=== PATIENT | male | born 1960 | race Caucasian/White ===

== ENCOUNTER 2020-08-12 14:17 | Outpatient (REF) | payer MEDICAID, SELFPAY ==
--- NOTE | 2020-08-12 | US_ITS ---
EXAMINATION: NONINVASIVE ASSESSMENT OF THE ARTERIES OF BOTH LOWER EXTREMITIES INTERPRETING VASCULAR AND INTERVENTIONAL RADIOLOGIST: Dony Fish MD CLINICAL INFORMATION: Claudication with absent pedal pulses. TECHNIQUE: Bilateral lower extremity duplex ultrasound was performed with velocity measurements and waveform analysis in the common femoral arteries, profunda femoris arteries, proximal mid and distal superficial femoral arteries, popliteal arteries and tibial vessels. This study was performed only at rest. COMPARISON: PVR study 02/06/2012. FINDINGS: Velocities in cm/sec and phasicity as well as the presence of plaque are reported below. RIGHT LEG: Significant plaque is present and there is complete occlusion of the SFA at its origin with reconstitution distally. Triphasic flow noted in the common femoral and proximal profunda femoris with monophasic flow noted throughout the remainder of the lower extremity. Common Femoral: 169 Profunda Femoris: 175 - a stenosis is present Proximal SFA: Occluded Mid SFA: 20 Distal SFA: 67 Popliteal: 32 Posterior tibial: 40 LEFT LEG: A profunda femoris stenosis is noted along with occlusion of the very proximal SFA occlusion in its midportion. Monophasic flow noted throughout. Common Femoral: 229 - exuberant plaque with stenosis. Profunda Femoris: 38 - profunda origin stenosis. Proximal SFA: Occluded Mid SFA: 90 Distal SFA: 41 Popliteal: 26 Posterior tibial: 40 US/US arterial duplex LE BI IMPRESSION: Significant atherosclerotic disease is present. There are bilateral SFA occlusions and profunda femoris stenoses. Compared to the 2011 study, disease has definitely progressed. On the right this time the LIANE was normal with continued disease on the left with new occlusion of the SFA.
== END 2020-08-12 14:18 | disposition home or self-care (01) ==
LOC: HO.US 14:17
PROVIDERS: PCP Internal Medicine; Visit Provider Internal Medicine
DX: I73.9 Peripheral vascular disease, unspecified (principal)
CPT/HCPCS: 93925

== ENCOUNTER 2022-04-19 11:28 | Outpatient (REF) | payer MEDICAID, SELFPAY ==
--- NOTE | ~2022-04-19 | XR_ITS ---
EXAMINATION: XR FOOT, RIGHT XR CALCANEUS, RIGHT CLINICAL INFORMATION: Symptoms at right heel, foreign body versus plantar wart. COMPARISON: None TECHNIQUE: 3 views of the left foot are obtained along with Carter view of the right heel. FINDINGS: There is normal bony mineralization. No acute or healing fracture, dislocation, or destructive process. No periostitis. There is mild bunion at medial first metatarsal. No joint narrowing or erosive change. The subtalar joint appears normal. The retrocalcaneal recess is preserved. There is no calcaneal spurring. There is no radiopaque soft tissue foreign body demonstrated in the heel nor gas tracking in the soft tissues. The Carter view shows some fine linear tram track calcifications posterior to the sustentaculum evan, not visible on the other views, likely vascular or ligamentous. XR/XR calcaneus RT min 2V IMPRESSION: -No visible heel radiopaque soft tissue foreign body or gas tracking in soft tissues. -Small bunion medial first metatarsal. -No calcaneal spurring. No arthropathy. -Fine linear tram track calcifications posterior to the sustentaculum evan, not visible on the other views, likely vascular or ligamentous.
--- NOTE | ~2022-04-19 | XR_ITS ---
EXAMINATION: XR FOOT, RIGHT XR CALCANEUS, RIGHT CLINICAL INFORMATION: Symptoms at right heel, foreign body versus plantar wart. COMPARISON: None TECHNIQUE: 3 views of the left foot are obtained along with Carter view of the right heel. FINDINGS: There is normal bony mineralization. No acute or healing fracture, dislocation, or destructive process. No periostitis. There is mild bunion at medial first metatarsal. No joint narrowing or erosive change. The subtalar joint appears normal. The retrocalcaneal recess is preserved. There is no calcaneal spurring. There is no radiopaque soft tissue foreign body demonstrated in the heel nor gas tracking in the soft tissues. The Carter view shows some fine linear tram track calcifications posterior to the sustentaculum evan, not visible on the other views, likely vascular or ligamentous. XR/XR foot RT min 3V IMPRESSION: -No visible heel radiopaque soft tissue foreign body or gas tracking in soft tissues. -Small bunion medial first metatarsal. -No calcaneal spurring. No arthropathy. -Fine linear tram track calcifications posterior to the sustentaculum evan, not visible on the other views, likely vascular or ligamentous.
== END 2022-04-19 11:29 | disposition home or self-care (01) ==
LOC: HO.HMGCX 11:28
PROVIDERS: PCP Internal Medicine; Visit Provider Internal Medicine
DX: B07.0 Plantar wart (principal)
CPT/HCPCS: 73630; 73650

== ENCOUNTER 2023-01-19 11:27 | Outpatient (REF) | payer MEDICARE, MEDICAID, SELFPAY ==
--- NOTE | ~2023-01-19 | XR_ITS ---
EXAMINATION: XR cervical spine 3V CLINICAL INFORMATION: Pain COMPARISON: Cervical spine radiographs 06/01/2020 TECHNIQUE: 3 views of the cervical spine were obtained. FINDINGS: The cervical spine is visualized to the level of C6-C7 on the lateral view. Vertebral body alignment is maintained. Vertebral body heights are maintained. Moderate degenerative disc disease at C6-C7, manifested by loss of disc space height and facet arthropathy. Lateral masses of C1 are well aligned on C2. Visualized portion of the dens is intact. No prevertebral soft tissue swelling. Calcifications in the soft tissues of the bilateral neck may reflect carotid calcifications. XR/XR cervical spine 3V IMPRESSION: * Moderate spondylosis of the cervical spine, as above detailed.
== END 2023-01-19 11:28 | disposition home or self-care (01) ==
LOC: HO.HMGCX 11:27
PROVIDERS: PCP Internal Medicine; Visit Provider Internal Medicine
DX: M54.2 Cervicalgia (principal)
CPT/HCPCS: 72040

== ENCOUNTER 2023-03-27 07:57 | Outpatient (REF) | payer MEDICARE, MEDICAID, SELFPAY ==
--- NOTE | ~2023-03-27 | XR_ITS ---
EXAMINATION: XR HAND, RIGHT CLINICAL INFORMATION: Pain COMPARISON: None TECHNIQUE: 3 views of the hand FINDINGS: No fracture or dislocation. Joint spaces are maintained. No cortical erosion. Atherosclerotic vascular calcification. XR/XR hand RT min 3V IMPRESSION: No acute osseous abnormality.
== END 2023-03-27 07:58 | disposition home or self-care (01) ==
LOC: HO.HOSX 07:57
PROVIDERS: Visit Provider Orthopaedic Surgery
DX: M79.641 Pain in right hand (principal)
CPT/HCPCS: 73130; 99202

== ENCOUNTER 2023-04-02 07:27 | Outpatient (REF) | payer MEDICARE, MEDICAID, SELFPAY ==
--- NOTE | ~2023-04-02 | XR_ITS ---
EXAMINATION: XR KNEE, LEFT XR KNEE AP STANDING CLINICAL INFORMATION: Pain. COMPARISON: None available. TECHNIQUE: Lateral and axial views of the left knee were obtained. AP bilateral standing view of the knees was obtained. FINDINGS: No fracture or joint effusion. Alignment is anatomic. Joint spaces are maintained. No significant varus or valgus configuration is seen bilaterally. There are diffuse bilateral atherosclerotic calcifications. XR/XR knee LT 2V IMPRESSION: Normal left knee and AP bilateral knee radiographs.
--- NOTE | ~2023-04-02 | XR_ITS ---
EXAMINATION: XR KNEE, LEFT XR KNEE AP STANDING CLINICAL INFORMATION: Pain. COMPARISON: None available. TECHNIQUE: Lateral and axial views of the left knee were obtained. AP bilateral standing view of the knees was obtained. FINDINGS: No fracture or joint effusion. Alignment is anatomic. Joint spaces are maintained. No significant varus or valgus configuration is seen bilaterally. There are diffuse bilateral atherosclerotic calcifications. XR/XR knee standing BI IMPRESSION: Normal left knee and AP bilateral knee radiographs.
== END 2023-04-02 07:28 | disposition home or self-care (01) ==
LOC: HO.HOSX 07:27
PROVIDERS: Visit Provider Physician Assistant
DX: S80.02XA Contusion of left knee, initial encounter (principal); M25.562 Pain in left knee
CPT/HCPCS: 20610; 73560; 73565; 99202; J1040

== ENCOUNTER 2023-08-02 18:45 | Outpatient (REF) | payer MEDICARE, MEDICAID, SELFPAY ==
--- NOTE | ~2023-08-02 | MR_ITS ---
MR LUMBAR SPINE WITHOUT CONTRAST CLINICAL INFORMATION: Low back pain. COMPARISON: Lumbar spine MRI 02/02/2020. TECHNIQUE: MRI of the lumbar spine was obtained using routine sequences without contrast. MR/MR lumbar spine wo con FINDINGS/IMPRESSION: The patient could not tolerate this study. A single sagittal T2-weighted series of the lumbar spine is obtained. No axial imaging is obtained. A repeat study, possibly with sedation is recommended as clinically indicated. On the single obtained sagittal T2-weighted series, at L1-L2, a left lateral disc protrusion resulting in left-sided foraminal encroachment and probable mass effect on the extraforaminal left L1 nerve root is likely unchanged. At L2-L3, there is a new inferiorly migrating left paracentral disc extrusion likely containing vacuum phenomenon resulting in compression of the traversing left L3 nerve root within the left L3 lateral recess. At L4-L5, a shallow disc protrusion is partially decreased in size resulting in improved moderate central canal stenosis and disc osteophyte and facet arthropathy result in moderate right-sided foraminal stenosis. At L5-S1, a new right paracentral disc protrusion compresses the traversing right S1 nerve root within the right subarticular zone.
== END 2023-08-02 18:46 | disposition home or self-care (01) ==
LOC: HO.MRI 18:45
PROVIDERS: PCP Internal Medicine; Visit Provider Internal Medicine
DX: M54.50 Low back pain, unspecified (principal)
CPT/HCPCS: 72148

== ENCOUNTER 2024-10-30 09:07 | Outpatient (REF) | payer MEDICARE, SELFPAY ==
--- NOTE | ~2024-10-30 | XR_ITS ---
EXAMINATION: XR WRIST 3 OR MORE VIEWS LEFT, XR FOREARM 2 VIEWS LEFT HISTORY: LEFT WRIST PAIN COMPARISON: There are no prior studies available for comparison. FINDINGS: Three views of the left wrist and AP and lateral views of the left forearm are submitted. Osseous mineralization is normal. There is no fracture or dislocation. The joint spaces are preserved. There are vascular calcifications. XR/XR wrist LT min 3V IMPRESSION: Unremarkable examination of the left wrist and forearm. Electronically signed by: Luis Davis MD 10/30/2024 01:24 PM BOB CACERES
--- NOTE | ~2024-10-30 | XR_ITS ---
EXAMINATION: XR WRIST 3 OR MORE VIEWS LEFT, XR FOREARM 2 VIEWS LEFT HISTORY: LEFT WRIST PAIN COMPARISON: There are no prior studies available for comparison. FINDINGS: Three views of the left wrist and AP and lateral views of the left forearm are submitted. Osseous mineralization is normal. There is no fracture or dislocation. The joint spaces are preserved. There are vascular calcifications. XR/XR forearm LT 2V IMPRESSION: Unremarkable examination of the left wrist and forearm. Electronically signed by: Luis Davis MD 10/30/2024 01:24 PM BOB CACERES
== END 2024-10-30 09:08 | disposition home or self-care (01) ==
LOC: HO.HMGCX 09:07
PROVIDERS: PCP Internal Medicine; Visit Provider Internal Medicine
DX: M79.632 Pain in left forearm (principal)
CPT/HCPCS: 73090; 73110

== ENCOUNTER → 2024-10-30 09:18 | Outpatient (BNV) | payer MEDICARE, SELFPAY | PROVIDERS: PCP Internal Medicine; Visit Provider Radiology Diagnostic Radiology | DX: M25.532 Pain in left wrist (principal) | CPT/HCPCS: 73090; 73110 ==

== ENCOUNTER 2025-04-28 14:04 | Outpatient (AMB) | payer MEDICARE, SELFPAY ==
--- NOTE | 2025-04-28 14:08 | MHC.PC.OV ---
Vital Signs 04/28/25 14:10 Height 5 ft 11.65 in Weight 225 lb BMI 30.8 BP 132/90 H Respiration 16 Pulse 85 Pulse Source Pulse Oximeter Temp 98.3 F Temp Source Temporal Artery Scan Pulse Oximetry (%) 96 Oxygen Delivery Method Room Air Intake Visit Reasons: establish care; pain management, back injury Photographer Apprentice Required: No Accompanied by: Self / Same As Patient Allergies No Known Allergies Allergy (Verified 04/28/25 14:08) Tobacco use date assessed: 04/28/25 Dental Screening Dental Screen Date: 04/28/25 Did you have a dental visit in the last 12 months?: Yes Did you have a dental problem in the last 6 months where you did not have access to dental care?: No Was dental information given to patient?: Patient has dentist (patient has dentures) [facility] Medical History (Updated 04/28/25 @ 14:37 by Varinder Jaime MD) Chronic pain syndrome History of degenerative disc disease High cholesterol Family History (Updated 04/28/25 @ 14:20 by CRUZ Farfan) Father Cirrhosis of liver Alcohol abuse Mother Dementia Social History (Updated 04/28/25 @ 14:19 by CRUZ Farfan) Housing: House Alcohol intake: current Alcohol intake frequency: does not drink Patient Tobacco Use Status: Former Tobacco user service: No Current occupational status: disabled Cognitive needs: Yes (cane occasionally) Hearing needs: No Vision needs: Yes (rx glasses) Questionnaire PHQ-9 Over the last 2 weeks, how often have you been bothered by any of the following problems? 1. Little interest or pleasure in doing things: not at all 2. Feeling down, depressed, or hopeless: not at all 3. Trouble falling or staying asleep, or sleeping too much: not at all 4. Feeling tired or having little energy: not at all 5. Poor appetite or overeating: not at all 6. Feeling bad about yourself - or that you are a failure or have let yourself or your family down: not at all 7. Trouble concentrating on things, such as reading the newspaper or watching television: not at all 8. Moving or speaking so slowly that other people could have noticed. Or the opposite - being so fidgety or restless that you have been moving around a lot more than usual: not at all 9. Thoughts that you would be better off or of hurting yourself in some way: not at all Total score: 0 Source: Developed by Drs. Luis Ramos, Melani Goodrich, Garth Subramanian and colleagues, with an educational luis daniel from [employer]. Thrive Questionnaire Date Thrive assessed: 04/28/25 I am a: Patient What is your living situation today?: I have a steady place to live Within the past 12 months, did the food you bought not last and you didn't have the money to get more?: Never true Within the past 12 months, did you worry whether your food would run out before you got money to buy more?: Never true Do you have trouble paying for medicines?: No Do you have trouble getting transportation to medical appointments?: No Do you have trouble paying your heating and electricity bill?: No Do you have trouble taking care of your child, family member or friend?: No Do you have trouble with day-to-day activities such as bathing, preparing meals, shopping, managing finances, etc.?: No Are you currently unemployed and looking for a job?: No Are you interested in more education?: No Please select the resources that you would like help with: None THRIVE Score: 0 AUDIT C Alcohol Use Questionnaire (AUDIT-C) 1. How often do you have a drink containing alcohol?: Never 3. How often do you have six or more drinks on one occasion?: Never Total Score: 0 DRE-7 AMB Questionnaire DRE-7 Date DRE - 7 assessed: 04/28/25 Feeling nervous, anxious, or on edge: 0 = Not at all Not being able to stop or control worryin = Not at all Worrying too much about different things: 0 = Not at all Trouble relaxin = Not at all Being so restless that it is hard to sit still: 0 = Not at all Becoming easily annoyed or irritable: 0 = Not at all Feeling afraid as if something awful might happen: 0 = Not at all Total DRE-7 score (0-4 normal; 5-9 mild; 10-14 moderate; 15-21 severe): 0 Source: Developed by Melani Klein Kurt Kroenke and colleagues, with an educational luis daniel from [employer]. Physical exam (Primary Care) Vital Signs: Last Vital Signs Temp 98.3 F 04/28/25 14:10 Pulse 85 04/28/25 14:10 Resp 16 04/28/25 14:10 BP 132/90 H 04/28/25 14:10 Pulse Ox 96 04/28/25 14:10 Oxygen Delivery Method Room Air 04/28/25 14:10 BMI result Body Mass Index 30.8 Tobacco/Smoking Status: Tobacco use Status Tobacco use date assessed 04/28/25 04/28/25 14:20 Patient Tobacco Use Status Former Tobacco user 04/28/25 14:20 PHQ-9: PHQ-9 Score PHQ-9: Total score 0 04/28/25 14:20 Thrive Assessment: Date of Thrive Assessment Date Thrive assessed 04/28/25 04/28/25 14:20 Coding Level of Care Code New Pt Level 4 (22767) Complex EM visit Add On G2211 Diagnoses Chronic pain syndrome G89.4 Assessment & Plan Assessment & Plan (1) Chronic pain syndrome: Code(s): G89.4 - Chronic pain syndrome Category: Medical Plan: Pt is disabled due to back pain for many years. Has agreed to reduce oxycodone to 15 mg a day and will try to taper him to 10 mg a day in a month or so. Continue muscle relaxants and other meds Plan History of Present Illness - The patient is a 64-year-old male presenting with management of chronic lower back pain and opioid use. - Chronic lower back pain began in 2019 after a back injury, with no surgical intervention due to the COVID-19 pandemic. - The patient has been on oxycodone and baclofen since the injury, with adjustments in medication due to side effects. - He has received cortisone injections, the last being about one and a half to two years ago, which have provided some relief. - The patient manages his condition with exercises such as stretches and sit-ups and is on disability due to his back condition. - He has a history of smoking cessation four years ago and denies any current substance use or alcohol consumption. 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 - He quit smoking four years ago and denies any substance use or alcohol consumption. Review of Systems - Musculoskeletal: Reports chronic lower back pain, occasional giving out of the back causing him to drop to a knee. - General: Denies smoking, alcohol, or substance use. Physical Exam General: Cooperative and healthy appearing Nutritional Appearance: Well nourished Orientation/consciousness: Patient oriented x3 Limitations: No limitations Head: Normal to inspection General: Appearance normal, both eyes and all related structures Neck: Normal visual inspection Chest: Normal palpation of entire chest wall Respiratory: N ormal respiratory effort Neurology: Patient oriented x3, no signs of substance use or smoking. Results Plan 1. Chronic Lower Back Pain - Plan to reduce oxycodone dosage from 20 mg to 15 mg per day, with a long-term goal of further reduction to twice daily dosing. - Referral to pain management for further evaluation and optimization of pain management strategies. - Continue current non-pharmacological interventions such as stretching and sit-ups. Discussion Notes I discussed with the patient the importance of reducing the oxycodone dosage to prevent potential addiction and to manage pain more effectively. We agreed on a plan to decrease the dosage to 15 mg per day, with a long-term goal of reducing it further to twice daily dosing. I recommended a referral to pain management to explore additional options for managing his chronic lower back pain. We also discussed the continuation of non-pharmacological interventions such as stretching and sit-ups. Follow-up was arranged to monitor progress and adjust the plan as necessary. Patient Instructions - Reduce oxycodone dosage to 15 mg per day, taking 5 mg three times a day. - Continue stretching and sit-ups to help manage back pain. - Attend the scheduled pain management appointment for further evaluation. - Follow up in 30 days to assess progress and adjust the treatment plan as needed. Medications: New oxycodone 5 mg PO TID PRN 90 tabs 0RF pain
[2025-04-28 14:10] VITALS: BP 132/90; PULSE 85; RESP 16; TEMP 36.8; O2SAT 96; BMI 30.8
== END 2025-04-28 14:36 | disposition home or self-care (01) ==
LOC: HO.HMCSH 14:04
PROVIDERS: PCP Internal Medicine; Visit Provider Internal Medicine
DX: G89.4 Chronic pain syndrome (principal)

== ENCOUNTER → 2025-04-28 14:04 | Outpatient (BNVA) | payer MEDICARE, SELFPAY | PROVIDERS: PCP Internal Medicine; Visit Provider Internal Medicine | DX: G89.4 Chronic pain syndrome (principal) | CPT/HCPCS: 99202 ==

== ENCOUNTER 2025-05-19 14:38 | Outpatient (AMB) | payer MEDICARE, SELFPAY ==
--- NOTE | 2025-05-19 14:46 | MHC.OFFVIS ---
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 The patient reports that the pain is localized to the lower back but radiates to the left leg, causing tingling and numbness and weakness with frequent falls. The pain is exacerbated by bending, standing for prolonged periods, and certain movements, and is described as constant with episodes of spasms. Previous interventions included medical injections at [facility] which provided temporary relief, and the patient has been advised against surgery due to the condition of the discs. The patient has a history of smoking cessation in 2020 and does not consume alcohol due to medication. He experiences panic attacks during MRIs and has been on oxycodone, which is being tapered by the new PCP provider. The patient also reports a recent tick bite 3 weeks, which has not been fully resolved, and he has not seen evaluation for this. He reports not feeling well for past few weeks, reports generalized weakness, fatigue and malaise without fever or chills. He reports history of multiple tick bites of smaller size but most recent was large tick and he is not sure if his completely pulled it out. Patient reports tenderness at the bite site. - Onset: Began in 2019 after heavy equipment incident - Quality: Constant pain with episodes of spasms, throbbing, sharp, burning, tingling, heavy, tightness, and radiating pain - Location: Localized to lower back, radiates to left leg - Radiation: Left leg, causing tingling and numbness - Exacerbating factors: Bending, standing for prolonged periods, certain movements - Relieving factors: Lying down provides some relief - Affect: Reports panic attacks during MRIs - Analgesia: Currently on oxycodone, being tapered from 4 to 3 doses - Adverse Effects: None reported - Activities of Daily Living: Pain affects ability to stand for long periods and requires use of a cane or walker at times; reports frequent falls due to back pain - Aberrant Drug Related Behaviors: None reported Oswestry Low Back Pain Disability Score=46 [facility] Medical History (Updated 05/19/25 @ 15:32 by EMILY Milian) Chronic pain syndrome History of degenerative disc disease High cholesterol Family History (Updated 04/28/25 @ 14:20 by CRUZ Farfan) Father Cirrhosis of liver Alcohol abuse Mother Dementia Social History (Updated 04/28/25 @ 14:19 by CRUZ Farfan) Housing: House Alcohol intake: current Alcohol intake frequency: does not drink Patient Tobacco Use Status: Former Tobacco user service: No Current occupational status: disabled Cognitive needs: Yes (cane occasionally) Hearing needs: No Vision needs: Yes (rx glasses) Review of Systems Const Details: - Musculoskeletal: Reports chronic low back pain, radiating to left leg, with spasms and tingling - Neurological: Reports tingling and numbness in left leg - Integumentary: Reports recent tick bite 3 weeks ago, no fever reported; reports fatigue, general weakness, soreness in the mid lower back at bite site - Psychiatric: Reports panic attacks during MRIs All systems reviewed & are unremarkable except as noted in HPI and below Reports as per HPI, Reports body aches, Reports chills, Reports difficulty sleeping, Reports fatigue, Denies fever(s), Reports frequent falls, Reports headache(s), Reports lethargy, Reports malaise, Denies night sweats, Reports weakness and Denies weight loss ENT Reports headache(s) Neuro Reports frequent falls, Reports headache(s) and Reports weakness Endo Reports fatigue Physical Exam Vital Signs: Last Vital Signs Pulse 77 05/19/25 14:51 BP 140/84 H 05/19/25 14:51 Pulse Ox 98 05/19/25 14:51 Oxygen Delivery Method Room Air 05/19/25 14:51 BMI result Body Mass Index 29.9 General: Appears afebrile. Moderate distress due to pain. Alert and oriented. Mood and affect appropriate. Follows and participates in conversation appropriately. Respiratory effort is unlabored. No cough. Able to transition from sit to stand unassisted. Ambulates with bilaterally normal heel strike and toe off. Reports left leg weakness and increased pain with walking. General: Yes no CVA tenderness Back/Spine/Pelvis Other: Limited lumbar ROM due to pain. Lumbar flexion and extension reproduce moderate to severe pain, worse with flexion forward. Demonstrates 5/5 right and 4/5 left strength of quadriceps bilaterally as well as flexion/dorsiflexion of bilateral feet against resistance. 2+ pedal pulses bilaterally. Straight leg rise with dorsiflexion positive on the left, equivocal on the right. +1 patellar and achilles reflexes bilaterally. Facet loading test positive bilaterally. Hannah sign, Kun?s, Pelvic compression and Stinchfield tests are positive bilaterally, left>right. No groin pain with I/E hip rotations. Significant TTP to mid to lower lumbar paraspinal and midline tenderness lower midline spine. Symptomatic and tender area midline lower back s/p tick bite 3 weeks ago with erythema and redness at the bite site. Valsalva maneuver is positive. Back: no CVA tenderness Cervical Spine: cervical ROM normal, cervical muscular tenderness, pain with cervical ROM, cervical spasm and No Cervical spine tenderness Thoracic/Lumbar Spine: thoracic and lumbar spine normal to inspection, Thoracic/lumbar spine scar(s), Lasegue's sign positive on the left and localized, pain with thoraco-lumbar ROM, paraspinal muscle tenderness, thoraco-lumbar ROM limited, No thoracic spinal tenderness and lumbar spinal tenderness at L3, at L4 and at L5 Pelvis: buttock tenderness on the left Sacroiliac joints: bilaterally tender to palpation Skin Other: Results Reviewed Results Reviewed: MR LUMBAR SPINE WITHOUT CONTRAST 08/02/23 CLINICAL INFORMATION: Low back pain. COMPARISON: Lumbar spine MRI 02/02/2020. TECHNIQUE: MRI of the lumbar spine was obtained using routine sequences without contrast. FINDINGS/IMPRESSION: The patient could not tolerate this study. A single sagittal T2-weighted series of the lumbar spine is obtained. No axial imaging is obtained. A repeat study, possibly with sedation is recommended as clinically indicated. On the single obtained sagittal T2-weighted series, at L1-L2, a left lateral disc protrusion resulting in left-sided foraminal encroachment and probable mass effect on the extraforaminal left L1 nerve root is likely unchanged. At L2-L3, there is a new inferiorly migrating left paracentral disc extrusion likely containing vacuum phenomenon resulting in compression of the traversing left L3 nerve root within the left L3 lateral recess. At L4-L5, a shallow disc protrusion is partially decreased in size resulting in improved moderate central canal stenosis and disc osteophyte and facet arthropathy result in moderate right-sided foraminal stenosis. At L5-S1, a new right paracentral disc protrusion compresses the traversing right S1 nerve root within the right subarticular zone. XR cervical spine 3V 01/19/23 CLINICAL INFORMATION: Pain COMPARISON: Cervical spine radiographs 06/01/2020 FINDINGS: The cervical spine is visualized to the level of C6-C7 on the lateral view. Vertebral body alignment is maintained. Vertebral body heights are maintained. Moderate degenerative disc disease at C6-C7, manifested by loss of disc space height and facet arthropathy. Lateral masses of C1 are well aligned on C2. Visualized portion of the dens is intact. No prevertebral soft tissue swelling. Calcifications in the soft tissues of the bilateral neck may reflect carotid calcifications. IMPRESSION: * Moderate spondylosis of the cervical spine, as above detailed. Assessment & Plan Assessment & Plan (1) Lumbar radiculopathy: Code(s): M54.16 - Radiculopathy, lumbar region Category: Medical (2) Lumbar degenerative disc disease: Code(s): M51.369 - Other intervertebral disc degeneration, lumbar region without mention of lumbar back pain or lower extremity pain Category: Medical (3) Lumbosacral spondylosis: Code(s): M47.817 - Spondylosis without myelopathy or radiculopathy, lumbosacral region Category: Medical (4) Recurrent falls: Code(s): R29.6 - Repeated falls Category: Medical (5) Lumbar radiculopathy: Code(s): M54.16 - Radiculopathy, lumbar region Category: Medical (6) Tick bite of back: Code(s): S30.860A - Insect bite (nonvenomous) of lower back and pelvis, initial encounter; W57.XXXA - Bitten or stung by nonvenomous insect and other nonvenomous arthropods, initial encounter Category: Medical Plan - Repeat lumbar MRI to assess current status of lumbar disc herniation, stenosis and evaluate for potential interventional pain management vs neurosurgical intervention if necessary - Consideration of interventional pain management options such as diagnostic vs therapeutic injections, Sprint PNS trial, RFA, spinal cord stimulator or pain pump if conservative measures are insufficient. - Patient encouraged to follow up with PCP for recent tick bite, symptomatic currently. Labs and one dose of doxycycline ordered. - Continue oxycodone under PCP supervision to manage chronic pain. - Patient is aware to call if pain worsens or if he develops any red flag symptoms to seek emergency care. All questions and concerns have been answered and patient agreed with the plan. Follow up for MRI results and sooner as needed. Patient was informed and verbally consented to the use of an ambient scribe for clinic note documentation during this visit. Orders: Orders MR lumbar spine wo con Today M47.817 - Spondylosis without myelopathy or radiculopathy, lumbosacral region, M51.369 - Other intervertebral disc degeneration, lumbar region without mention of lumbar back pain or lower extremity pain, M54.16 - Radiculopathy, lumbar region, R29.6 - Repeated falls Lyme IgG/IgM w/reflex to WB Today S30.860A - Insect bite (nonvenomous) of lower back and pelvis, initial encounter, W57.XXXA - Bitten or stung by nonvenomous insect and other nonvenomous arthropods, initial encounter Complete Blood Count Auto Diff Today S30.860A - Insect bite (nonvenomous) of lower back and pelvis, initial encounter, W57.XXXA - Bitten or stung by nonvenomous insect and other nonvenomous arthropods, initial encounter Lipid Panel Today S30.860A - Insect bite (nonvenomous) of lower back and pelvis, initial encounter, W57.XXXA - Bitten or stung by nonvenomous insect and other nonvenomous arthropods, initial encounter Creatinine Today S30.860A - Insect bite (nonvenomous) of lower back and pelvis, initial encounter, W57.XXXA - Bitten or stung by nonvenomous insect and other nonvenomous arthropods, initial encounter Medications: New lidocaine 5% 1 patch topical DAILY 30 ea 1RF pain 30 days M47.817 - Spondylosis without myelopathy or radiculopathy, lumbosacral region, M51.369 - Other intervertebral disc degeneration, lumbar region without mention of lumbar back pain or lower extremity pain, M54.16 - Radiculopathy, lumbar region doxycycline hyclate 200 mg (2 x 100 mg) PO DAILY 2 caps 0RF 1 day S30.860A - Insect bite (nonvenomous) of lower back and pelvis, initial encounter, W57.XXXA - Bitten or stung by nonvenomous insect and other nonvenomous arthropods, initial encounter Coding Level of Care Code New Pt Level 4 (10644) Diagnoses Lumbar radiculopathy M54.16 Lumbar degenerative disc disease M51.369 Lumbosacral spondylosis M47.817 Recurrent falls R29.6 Tick bite of back S30.860A; W57.XXXA
[2025-05-19 14:51] VITALS: BP 140/84; PULSE 77; O2SAT 98; BMI 29.9
== END 2025-05-19 15:53 | disposition home or self-care (01) ==
PROVIDERS: PCP Internal Medicine; Visit Provider Nurse Practitioner Family
DX: M54.16 Radiculopathy, lumbar region (principal); M51.369 Other intervertebral disc degeneration, lumbar region without mention of lumbar back pain or lower extremity pain; M47.817 Spondylosis without myelopathy or radiculopathy, lumbosacral region; R29.6 Repeated falls; S30.860A Insect bite (nonvenomous) of lower back and pelvis, initial encounter; W57.XXXA Bitten or stung by nonvenomous insect and other nonvenomous arthropods, initial encounter
CPT/HCPCS: 99204

== ENCOUNTER 2025-05-19 14:38 | Outpatient (REF) | payer MEDICARE, SELFPAY ==
[2025-05-19 16:04] LABS: MANUAL DIFF FLAG NO
[2025-05-19 16:44] LABS: Hematocrit 44.6 % (42.0-52.0); Hemoglobin 15.1 g/dl (14.0-18.0); Imm Gran Abs Auto 0.04 X10*3/uL (0.00-0.03); Imm Gran Pct Auto 0.4 % (0.0-0.4); Lymphocytes Absolute Auto 3.6 X10*3/uL (1.2-4.9); Mean Corpuscular HGB Conc 33.9 g/dl (31.0-36.0); Mean Corpuscular Hemoglobin 29.5 pg (27.0-33.0); Mean Corpuscular Volume 87.3 fL (80.0-98.0); NRBC Abs Auto 0.000 X10*3/uL (0.0-0.012); NRBC Pct Auto 0.0 /100WBC (0.0-0.2); Platelet Count 149 X10*3/uL (160-400); Red Blood Count 5.11 X10*6/uL (4.60-5.80); White Blood Count 9.8 X10*3/uL (4.8-10.8)
[2025-05-19 17:11] LABS: Cholesterol 194 mg/dL (<200); Estimated Glomerular Filt Rate > 60; HDL Cholesterol 45 mg/dL (>40); Triglycerides 141 mg/dL (<150)
[2025-05-21 08:24] LABS: Lyme Abs Screen <0.90 index
== END 2025-05-19 14:39 | disposition home or self-care (01) ==
LOC: HO.LAB 14:38
PROVIDERS: PCP Internal Medicine; Visit Provider Nurse Practitioner Family
DX: Z01.84 Encounter for antibody response examination (principal); M54.16 Radiculopathy, lumbar region; M51.369 Other intervertebral disc degeneration, lumbar region without mention of lumbar back pain or lower extremity pain; M47.817 Spondylosis without myelopathy or radiculopathy, lumbosacral region; S30.860A Insect bite (nonvenomous) of lower back and pelvis, initial encounter; M54.50 Low back pain, unspecified; G89.4 Chronic pain syndrome; R29.6 Repeated falls; Z13.6 Encounter for screening for cardiovascular disorders; Z79.899 Other long term (current) drug therapy; W57.XXXA Bitten or stung by nonvenomous insect and other nonvenomous arthropods, initial encounter
CPT/HCPCS: 36415; 80061; 82565; 85025; 86617; 86618; 99202

== ENCOUNTER 2025-05-27 13:17 | Outpatient (AMB) | payer MEDICARE, SELFPAY ==
--- NOTE | 2025-05-27 13:22 | A.OFFPC_ITS ---
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 Accompanied by: Self / Same As Patient Allergies No Known Allergies Allergy (Verified 05/28/25 13:11) Medication List - Last Reconciled 05/28/25 by Maryana Matos PA-C albuterol sulfate 90 mcg/actuation 2 puffs inhalation Q4H PRN baclofen 20 mg PO QID ibuprofen 800 mg PO TID oxycodone 5 mg PO TID PRN Tobacco use date assessed: 04/28/25 Dental Screening Dental Screen Date: 04/28/25 Did you have a dental visit in the last 12 months?: Yes Did you have a dental problem in the last 6 months where you did not have access to dental care?: No Was dental information given to patient?: Patient has dentist (patient has dentures) HPI 1 month follow up HPI Details Patient with a past medical history of chronic pain syndrome due to lower back presenting for refill of his narcotics. His chronic pain began in 2019 after a back injury with no surgical intervention due to COVID-19 pandemic. The patient has been on oxycodone and baclofen since the injury, with adjustments in medications due to side effects. He has received cortisone injections the last being about 1-1/2-2 years ago which have provided some relief. The patient manages his condition with exercise such as stretches instead of and is on disability due to back condition. He has a history of smoking cessation of 4 years ago and currently denies any current substance use or alcohol consumption. From Dr. Jaime's last no on 04/28/2025 it appears he had a discussion with the patient at the last visit that he will be decreasing him to 2 times a day of 5 mg oxycodone. Therefore at this visit we will be decreasing the patient to oxycodone 5 mg b.i.d.. He is agreeable to pain contract. He is agreeable to random drug screens. He is agreeable to random pill counts. He is agreeable to every 30 day visits. Patient denies any acute complaints. [facility] Medical History Chronic pain syndrome History of degenerative disc disease High cholesterol Family History Father Cirrhosis of liver Alcohol abuse Mother Dementia Social History Housing: House Alcohol intake: current Alcohol intake frequency: does not drink Patient Tobacco Use Status: Former Tobacco user service: No Current occupational status: disabled Cognitive needs: Yes (cane occasionally) Hearing needs: No Vision needs: Yes (rx glasses) Questionnaire PHQ-9 Over the last 2 weeks, how often have you been bothered by any of the following problems? 1. Little interest or pleasure in doing things: not at all 2. Feeling down, depressed, or hopeless: not at all 3. Trouble falling or staying asleep, or sleeping too much: not at all 4. Feeling tired or having little energy: not at all 5. Poor appetite or overeating: not at all 6. Feeling bad about yourself - or that you are a failure or have let yourself or your family down: not at all 7. Trouble concentrating on things, such as reading the newspaper or watching television: not at all 8. Moving or speaking so slowly that other people could have noticed. Or the op posite - being so fidgety or restless that you have been moving around a lot more than usual: not at all 9. Thoughts that you would be better off or of hurting yourself in some way: not at all Total score: 0 Depression Screening Interpretation: Negative Depression Screening Done: Yes 06627 - PHQ-9 Billing: Yes Source: Developed by Drs. Luis Ramos, Melani Goodrich, Garth Subramanian and colleagues, with an educational luis daniel from [employer]. Thrive Questionnaire Date Thrive assessed: 04/28/25 I am a: Patient What is your living situation today?: I have a steady place to live Within the past 12 months, did the food you bought not last and you didn't have the money to get more?: Never true Within the past 12 months, did you worry whether your food would run out before you got money to buy more?: Never true Do you have trouble paying for medicines?: No Do you have trouble getting transportation to medical appointments?: No Do you have trouble paying your heating and electricity bill?: No Do you have trouble taking care of your child, family member or friend?: No Do you have trouble with day-to-day activities such as bathing, preparing meals, shopping, managing finances, etc.?: No Are you currently unemployed and looking for a job?: No Are you interested in more education?: No Please select the resources that you would like help with: None THRIVE Score: 0 AUDIT C Alcohol Use Questionnaire (AUDIT-C) 1. How often do you have a drink containing alcohol?: Never 3. How often do you have six or more drinks on one occasion?: Never Total Score: 0 Score Reviewed/Action Taken: No DRE-7 AMB Questionnaire DRE-7 Date DRE - 7 assessed: 04/28/25 Feeling nervous, anxious, or on edge: 0 = Not at all Not being able to stop or control worryin = Not at all Worrying too much about different things: 0 = Not at all Trouble relaxin = Not at all Being so restless that it is hard to sit still: 0 = Not at all Becoming easily annoyed or irritable: 0 = Not at all Feeling afraid as if something awful might happen: 0 = Not at all Total DRE-7 score (0-4 normal; 5-9 mild; 10-14 moderate; 15-21 severe): 0 Source: Developed by Drs. Luis Ramos, Melani Goodrich, Garth Subramanian and colleagues, with an educational luis daniel from [employer]. DRE-7 Assessment Billing DRE-7 Assessment Tool: DRE-7 Assessment 15100 Review of Systems Const All systems reviewed & are unremarkable except as noted in HPI and below Physical exam (Primary Care) Vital Signs: Last Vital Signs Temp 98.1 F 05/27/25 13:23 Pulse 97 05/27/25 13:23 Resp 16 05/27/25 13:23 BP 132/80 05/27/25 13:23 Pulse Ox 97 05/27/25 13:23 Oxygen Delivery Method Room Air 05/27/25 13:23 Care Plan Goal for BP management: <140/90 at Goal BMI result Body Mass Index 30.4 BMI Assessment/Plan discussion: High BMI High, discussed plan: lifestyle, weight reduction, dietary, physical activity and alcohol moderation Tobacco/Smoking Status: Tobacco use Status Tobacco use date assessed 04/28/25 05/27/25 13:36 Patient Tobacco Use Status Former Tobacco user 05/27/25 13:36 PHQ-9: PHQ-9 Score PHQ-9: Total score 0 05/28/25 13:21 Depression Screening Interpretation: Negative Thrive Assessment: Date of Thrive Assessment Date Thrive assessed 04/28/25 05/27/25 13:36 Const Other: Appearance: Alert. Oriented X3. No acute distress. Head: Normal external exam. Normocephalic. Atraumatic. Eyes: Pupils are equal, round, and reactive to light. Extraocular movements inta ct. Conjunctiva and sclera normal. Eyelids normal. Throat: Pharynx normal. Uvula midline. Moist mucous membranes. Neck: Normal inspection. Neck supple. Full range of motion. Cardiovascular: Normal heart rate and rhythm. Respiratory: No respiratory distress. Painless inspiration. Back: Full range of motion noted. Skin: Skin warm and dry. Normal skin color. Normal skin turgor. No rashes/lesions/lacerations noted. Extremities: Extremities exhibit normal range of motion Coding Level of Care Code Est Pt Level 4 (45640) Complex EM visit Add On G2211 Diagnoses Chronic pain syndrome G89.4 Lumbar radiculopathy M54.16 Lumbar degenerative disc disease M51.369 Lumbosacral spondylosis M47.817 Additional Codes DRE-7 Assessment Billing - DRE-7 Assessment Tool: DRE-7 Assessment 71805 ([id number]) PHQ-9 - 77987 - PHQ-9 Billing: Yes ([id number]) Assessment & Plan Assessment & Plan (1) Chronic pain syndrome: Code(s): G89.4 - Chronic pain syndrome Category: Medical Plan: 1. Chronic pain syndrome. - Patient has history of chronic lower back pain is currently on oxycodone was decreased from 20 mg to 15 mg and will be decreased to 10 mg today. - He will be taking 5 mg oxycodone b.i.d.. - He is agreeable to pain contract signed it after he reviewed it. - He is agreeable to random drug screening test and he will be having 1 today. - patient is also going to pain management was recently seen on 05/19/2020. - Patient agreeable to receiving Narcan with narcotic prescription - Patient agreeable to returning every 30 days (2) Lumbar radiculopathy: Code(s): M54.16 - Radiculopathy, lumbar region Category: Medical (3) Lumbar degenerative disc disease: Code(s): M51.369 - Other intervertebral disc degeneration, lumbar region without mention of lumbar back pain or lower extremity pain Category: Medical (4) Lumbosacral spondylosis: Code(s): M47.817 - Spondylosis without myelopathy or radiculopathy, lumbosacral region Category: Medical Plan 1. Chronic pain syndrome. - Patient has history of chronic lower back pain is currently on oxycodone was decreased from 20 mg to 15 mg and will be decreased to 10 mg today. - He will be taking 5 mg oxycodone b.i.d.. - He is agreeable to pain contract signed it after he reviewed it. - He is agreeable to random drug screening test and he will be having 1 today. - patient is also going to pain management was recently seen on 05/19/2020. - Patient agreeable to receiving Narcan with narcotic prescription - Patient agreeable to returning every 30 days Medications: New ibuprofen 800 mg PO TID 90 tabs 3RF naloxone 4 mg/actuation (Narcan) spray 1 dose into ONE nostril; alternate nostrils w each dose until help arrives 1 spray intranasal Q2M 2 ea 1RF Sedation/overdose Changed From oxycodone 5 mg PO TID PRN 90 tabs 0RF pain To oxycodone 5 mg PO BID PRN 60 tabs 0RF pain 30 days Patient Instructions: 1. Chronic pain syndrome. - Patient has history of chronic lower back pain is currently on oxycodone was decreased from 20 mg to 15 mg and will be decreased to 10 mg today. - He will be taking 5 mg oxycodone b.i.d.. - He is agreeable to pain contract signed it after he reviewed it. - He is agreeable to random drug screening test and he will be having 1 today. - patient is also going to pain management was recently seen on 05/19/2020. - Patient agreeable to receiving Narcan with narcotic prescription - Patient agreeable to returning every 30 days
[2025-05-27 13:23] VITALS: BP 132/80; PULSE 97; RESP 16; TEMP 36.7; O2SAT 97; BMI 30.4
== END 2025-05-27 16:05 | disposition home or self-care (01) ==
LOC: HO.HMCSH 13:17
PROVIDERS: PCP Internal Medicine; Visit Provider Physician Assistant Medical
DX: G89.4 Chronic pain syndrome (principal); M54.16 Radiculopathy, lumbar region; M51.369 Other intervertebral disc degeneration, lumbar region without mention of lumbar back pain or lower extremity pain; M47.817 Spondylosis without myelopathy or radiculopathy, lumbosacral region

== ENCOUNTER 2025-05-27 13:17 | Outpatient (REF) | payer MEDICARE, SELFPAY ==
[2025-05-27 17:36] LABS: Cannabinoid Screen Urine Not Detected (Not Detect)
== END 2025-05-27 13:18 | disposition home or self-care (01) ==
LOC: HO.HMGCLDS 13:17
PROVIDERS: PCP Internal Medicine; Visit Provider Physician Assistant Medical
DX: G89.4 Chronic pain syndrome (principal); M54.16 Radiculopathy, lumbar region; M51.369 Other intervertebral disc degeneration, lumbar region without mention of lumbar back pain or lower extremity pain; M47.817 Spondylosis without myelopathy or radiculopathy, lumbosacral region
CPT/HCPCS: 80307; 96127; 99212

== ENCOUNTER 2025-06-26 13:47 | Outpatient (REF) | payer MEDICARE, SELFPAY ==
--- NOTE | ~2025-06-26 | XR_ITS ---
EXAMINATION: XR SHOULDER, RIGHT CLINICAL INFORMATION: M25.511 - Pain in right shoulder COMPARISON: None available. TECHNIQUE: AP external rotation, Grashey, scapular Y, and axillary views of the right shoulder. FINDINGS: Normal bone mineralization. No fracture, dislocation, or suspicious bone lesion. Normal alignment. The glenohumeral joint demonstrates minimal degenerative arthritis. The AC joint demonstrates mild arthritic spurring. There is a type II acromion. No undersurface spurring. The subacromial space is preserved. Remainder of the soft tissue and bony structures appear normal. XR/XR shoulder RT min 2V IMPRESSION: 1. No acute bony abnormalities. 2. Mild degenerative arthritis of the glenohumeral joint and AC joint. Electronically signed by: Romario Ramirez MD 06/26/2025 03:09 PM EDT
[2025-06-26 16:22] LABS: Hematocrit 46.0 % (42.0-52.0); Hemoglobin 15.1 g/dl (14.0-18.0); Mean Corpuscular HGB Conc 32.8 g/dl (31.0-36.0); Mean Corpuscular Hemoglobin 28.8 pg (27.0-33.0); Mean Corpuscular Volume 87.8 fL (80.0-98.0); NRBC Abs Auto 0.000 X10*3/uL (0.0-0.012); NRBC Pct Auto 0.0 /100WBC (0.0-0.2); Platelet Count 157 X10*3/uL (160-400); Red Blood Count 5.24 X10*6/uL (4.60-5.80); White Blood Count 8.2 X10*3/uL (4.8-10.8)
[2025-06-26 16:46] LABS: Albumin Level 4.8 g/dL (3.5-5.0); Alkaline Phosphatase 72 U/L (39-117); Anion Gap 13 (12-20); Aspartate Amino Transferase 29 U/L (5-37); Blood Urea Nitrogen 16 mg/dL (9-16); Calcium 10.2 mg/dL (8.4-10.2); Carbon Dioxide 26 mmol/L (22-29); Chloride 107 mmol/L (96-108); Estimated Glomerular Filt Rate > 60; Magnesium 2.1 mg/dL (1.6-2.6); Potassium 4.2 mmol/L (3.3-5.1); Sodium 142 mmol/L (135-145); Total Protein 7.3 g/dL (6.5-8.0)
[2025-06-26 16:56] LABS: Alanine Aminotransferase 41 U/L (0-40)
[2025-06-26 17:07] LABS: PSA,Total (Free>4and<10) 0.35 ng/mL (0.00-4.00)
[2025-06-26 17:20] LABS: Folate 6.0 ng/mL (> or = 4.0); Vitamin B12 549 pg/mL (200-900)
[2025-06-27 12:24] LABS: Lyme Abs Screen <0.90 index
== END 2025-06-26 13:48 | disposition home or self-care (01) ==
LOC: HO.HMGCX 13:47
PROVIDERS: PCP Internal Medicine; Visit Provider Physician Assistant Medical
DX: Z00.00 Encounter for general adult medical examination without abnormal findings (principal); Z23 Encounter for immunization; Z13.1 Encounter for screening for diabetes mellitus; Z12.5 Encounter for screening for malignant neoplasm of prostate; M25.511 Pain in right shoulder; M47.817 Spondylosis without myelopathy or radiculopathy, lumbosacral region; G89.4 Chronic pain syndrome; D69.6 Thrombocytopenia, unspecified; Z87.891 Personal history of nicotine dependence
CPT/HCPCS: 36415; 73030; 80053; 82248; 82306; 82607; 82746; 83036; 83735; 84153; 84443; 85027; 86140; 86617; 86618; 96127; 96372; 99212; J1885

== ENCOUNTER 2025-06-26 13:47 | Outpatient (AMB) | payer MEDICARE, SELFPAY ==
--- NOTE | 2025-06-26 13:48 | A.OFFPC_ITS ---
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 Accompanied by: Self / Same As Patient Allergies No Known Allergies Allergy (Verified 06/26/25 14:37) Medication List - Last Reconciled 06/26/25 by Maryana Matos PA-C albuterol sulfate 90 mcg/actuation 2 puffs inhalation Q4H PRN baclofen 20 mg PO QID diclofenac sodium 1% (Voltaren Arthritis Pain) 4 grams topical QID ibuprofen 800 mg PO TID naloxone 4 mg/actuation (Narcan) 1 spray intranasal Q2M oxycodone 5 mg PO BID PRN 30 days Tobacco use date assessed: 06/26/25 Dental Screening Dental Screen Date: 06/26/25 Did you have a dental visit in the last 12 months?: Yes Did you have a dental problem in the last 6 months where you did not have access to dental care?: No Was dental information given to patient?: Patient has dentist (patient has dentures) HPI 1 month follow up HPI Details The patient is a 65-year-old male presenting with right shoulder pain and follow-up for pain management. The right shoulder pain began approximately three weeks ago without any specific inciting event. The pain is severe enough to wake him at night and restricts movement, particularly when lifting or crossing the chest. He has been taking ibuprofen, baclofen, and oxycodone, which provide some relief. The patient also reports a history of lumbar spondylosis, with MRI findings showing multilevel changes most pronounced at L4-L5, including moderate canal narrowing and severe disc degeneration at L2-L3. He has previously received multiple spinal injections for pain management, which provided temporary relief. Additionally, the patient has a low platelet count of 149,000, which is being monitored. Social history - Employment: Retired, previously engage d in painting as a hobby. [facility] Medical History (Updated 06/26/25 @ 14:42 by Maryana Matos PA-C) Low platelet count Right shoulder pain Chronic pain syndrome History of degenerative disc disease High cholesterol Family History Father Cirrhosis of liver Alcohol abuse Mother Dementia Social History Housing: House Alcohol intake: current Alcohol intake frequency: does not drink Patient Tobacco Use Status: Former Tobacco user service: Yes Current occupational status: disabled Cognitive needs: Yes (cane occasionally) Hearing needs: No Vision needs: Yes (rx glasses) Questionnaire PHQ-9 Over the last 2 weeks, how often have you been bothered by any of the following problems? 1. Little interest or pleasure in doing things: not at all 2. Feeling down, depressed, or hopeless: not at all 3. Trouble falling or staying asleep, or sleeping too much: not at all 4. Feeling tired or having little energy: not at all 5. Poor appetite or overeating: not at all 6. Feeling bad about yourself - or that you are a failure or have let yourself or your family down: not at all 7. Trouble concentrating on things, such as reading the newspaper or watching television: not at all 8. Moving or speaking so slowly that other people could have noticed. Or the opposite - being so fidgety or restless that you have been moving around a lot more than usual: not at all 9. Thoughts that you would be better off or of hurting yourself in some way: not at all Total score: 0 Depression Screening Interpretation: Negative Depression Screening Done: Yes 73065 - PHQ-9 Billing: Yes Source: Developed by Drs. Luis Ramos, Melani Goodrich, Garth Subramanian and colleagues, with an educational luis daniel from [employer]. Thrive Questionnaire Date Thrive assessed: 04/28/25 I am a: Patient What is your living situation today?: I have a steady place to live Within the past 12 months, did the food you bought not last and you didn't have the money to get more?: Never true Within the past 12 months, did you worry whether your food would run out before you got money to buy more?: Never true Do you have trouble paying for medicines?: No Do you have trouble getting transportation to medical appointments?: No Do you have trouble paying your heating and electricity bill?: No Do you have trouble taking care of your child, family member or friend?: No Do you have trouble with day-to-day activities such as bathing, preparing meals, shopping, managing finances, etc.?: No Are you currently unemployed and looking for a job?: No Are you interested in more education?: No Please select the resources that you would like help with: None THRIVE Score: 0 AUDIT C Alcohol Use Questionnaire (AUDIT-C) 1. How often do you have a drink containing alcohol?: Never 3. How often do you have six or more drinks on one occasion?: Never Total Score: 0 Score Reviewed/Action Taken: No DRE-7 AMB Questionnaire DRE-7 Date DRE - 7 assessed: 04/28/25 Feeling nervous, anxious, or on edge: 0 = Not at all Not being able to stop or control worryin = Not at all Worrying too much about different things: 0 = Not at all Trouble relaxin = Not at all Being so restless that it is hard to sit still: 0 = Not at all Becoming easily annoyed or irritable: 0 = Not at all Feeling afraid as if something awful might happen: 0 = Not at all Total DRE-7 score (0-4 normal; 5-9 mild; 10-14 moderate; 15-21 severe): 0 Source: Developed by Drs. Luis Ramos, Melani Goodrich, Garth Subramanian and colleagues, with an educational luis daniel from [employer]. DRE-7 Assessment Billing DRE-7 Assessment Tool: DRE-7 Assessment 57003 Review of Systems Const Details: - Musculoskeletal: Reports right shoulder pain for three weeks, worsens with movement, and wakes him at night. - Neurological: Reports back spasms and numbness in the arm, particularly after sleeping on it. All systems reviewed & are unremarkable except as noted in HPI and below Physical exam (Primary Care) Vital Signs: Last Vital Signs Temp 97.7 F 06/26/25 13:58 Pulse 81 06/26/25 13:58 Resp 16 06/26/25 13:58 BP 136/80 06/26/25 13:58 Pulse Ox 97 06/26/25 13:58 Oxygen Delivery Method Room Air 06/26/25 13:58 Care Plan Goal for BP management: <140/90 at Goal BMI result Body Mass Index 30.3 BMI Assessment/Plan discussion: High BMI High, discussed plan: lifestyle, weight reduction, dietary, physical activity, alcohol moderation and other Tobacco/Smoking Status: Tobacco use Status Tobacco use date assessed 06/26/25 06/26/25 13:53 Patient Tobacco Use Status Former Tobacco user 06/26/25 13:53 PHQ-9: PHQ-9 Score PHQ-9: Total score 0 06/26/25 13:53 Depression Screening Interpretation: Negative Thrive Assessment: Date of Thrive Assessment Date Thrive assessed 04/28/25 06/26/25 13:53 Const Other: Appearance: Alert. Oriented X3. No acute distress. Head: Normal external exam. Normocephalic. Atraumatic. Eyes: Pupils are equal, round, and reactive to light. Extraocular movements intact. Conjunctiva and sclera normal. Eyelids normal. Throat: Pharynx normal. Uvula midline. Moist mucous membranes. Neck: Normal inspection. Neck supple. Full range of motion. Cardiovascular: Normal heart rate and rhythm. Respiratory: No respiratory distress. Painless inspiration. Back: Full range of motion noted. Skin: Skin warm and dry. Normal skin color. Normal skin turgor. No rashes/lesions/lacerations noted. Extremities: Extremities exhibit normal range of motion. Neuro: Oriented X 3. No motor deficit. No sensory deficit. Reflexes normal. Office Meds ketorolac 30 mg/mL (1 mL) injection solution Performing Provider: Maryana Matos PA-C [place] [place] [facility] Administered by: Maryana Matos PA-C on 06/26/25 14:47 Dose Route Admin Location Dispensed Lot Number Expiration Date [facility] Fluorescent Solution Mixer 30 mg IM 1 mL Total Dispensed Waste 1 mL 0 % Results Reviewed Results Reviewed: - Labs: Platelet count at 149,000. - Imaging: MRI showed multilevel changes of lumbar spondylosis, most pronounced at L4-L5, with moderate canal narrowing and severe disc degeneration at L2-L3. Coding Level of Care Code Est Pt Level 4 (36424) Complex EM visit Add On G2211 Diagnoses Right shoulder pain M25.511 Lumbosacral spondylosis M47.817 Chronic pain syndrome G89.4 Low platelet count D69.6 Additional Codes DRE-7 Assessment Billing - DRE-7 Assessment Tool: DRE-7 Assessment 35803 ([id number]) PHQ-9 - 61622 - PHQ-9 Billing: Yes ([id number]) Assessment & Plan Assessment & Plan (1) Right shoulder pain: Code(s): M25.511 - Pain in right shoulder Category: Medical Plan: The plan includes obtaining an x-ray of the right shoulder to further evaluate the bursitis. The patient is advised to rest the shoulder and avoid activities that exacerbate the pain. (2) Lumbosacral spondylosis: Code(s): M47.817 - Spondylosis without myelopathy or radiculopathy, lumbosacral region Category: Medical Plan: The patient is advised to follow up with Dr. Linares to discuss the MRI findings and consider further management options. Pain management with oxycodone is currently insufficient per patient since we decreased him from 5 mg q.i.d. to 5 mg b.i.d. I explained to the patient he can discuss this with Dr. Jaime at his next visit. At this time he was given Toradol injection 30 mg to left deltoid joint. Will also prescribe the patient Voltaren cream. He will continue taking Motrin and baclofen as well. He will continue following up with pain management. (3) Chronic pain syndrome: Code(s): G89.4 - Chronic pain syndrome Category: Medical (4) Low platelet count: Code(s): D69.6 - Thrombocytopenia, unspecified Category: Medical Plan: The low platelet count will be monitored, and further blood work is planned to assess other parameters such as sodium, potassium, and kidney function. Plan Plan Patient was informed and verbally consented to the use of an ambient scribe for clinic note documentation during this visit. 1. Right Shoulder Bursitis The plan includes obtaining an x-ray of the right shoulder to further evaluate the bursitis. The patient is advised to rest the shoulder and avoid activities that exacerbate the pain. 2. Lumbar Spondylosis The patient is advised to follow up with Dr. Linares to discuss the MRI findings and consider further management options. Pain management with oxycodone is currently insufficient, and adjustments may be needed. 3. Low Platelet Count The low platelet count will be monitored, and further blood work is planned to assess other parameters such as sodium, potassium, and kidney function. I discussed with the patient the likely diagnosis of right shoulder bursitis and the need for an x-ray to confirm the condition. We talked about the importance of resting the shoulder and avoiding activities that worsen the pain. The patient was informed about the MRI findings of lumbar spondylosis and the need to follow up with Dr. Linares for further management. We also discussed the low platelet count and the plan to monitor it with additional blood work. The patient expressed concerns about the current pain management regimen, and I ad vised him to discuss this with Dr. Linares at the next visit. Orders: Orders XR shoulder RT min 2V Today M25.511 - Pain in right shoulder Comprehensive Met. Panel Today Z00.00 - Encounter for general adult medical examination without abnormal findings TSH reflex Free T4 Today Z00.00 - Encounter for general adult medical examination without abnormal findings PSA,Total (Free>4and<10) Today Z00.00 - Encounter for general adult medical examination without abnormal findings Vitamin B12 and Folate Today Z00.00 - Encounter for general adult medical examination without abnormal findings Vitamin D 25-OH Total Today Z00.00 - Encounter for general adult medical examination without abnormal findings Liver Panel Today Z00.00 - Encounter for general adult medical examination without abnormal findings Hemoglobin A1c Today Z00.00 - Encounter for general adult medical examination without abnormal findings Magnesium Today Z00.00 - Encounter for general adult medical examination without abnormal findings Complete Blood Count no Diff Today Z00.00 - Encounter for general adult medical examination without abnormal findings C Reactive Protein Today Z00.00 - Encounter for general adult medical examination without abnormal findings AMB Ketorolac Injection Today M25.511 - Pain in right shoulder Medications: New diclofenac sodium 1% (Voltaren Arthritis Pain) apply to single knee, ankle, foot; for foot includes sole/toes/top of foot 4 grams topical QID 100 grams 4RF Refilled oxycodone 5 mg PO BID PRN 60 tabs 0RF pain 30 days Patient Instructions: - Rest your right shoulder and avoid activities that cause pain. - Follow up with Dr. Linares to discuss MRI findings and pain management. - Complete the x-ray of your right shoulder as ordered. - Monitor for any new symptoms or changes in your condition and report them.
[2025-06-26 13:58] VITALS: BP 136/80; PULSE 81; RESP 16; TEMP 36.5; O2SAT 97; BMI 30.3
== END 2025-06-26 14:23 | disposition home or self-care (01) ==
LOC: HO.HMCSH 13:47
PROVIDERS: PCP Internal Medicine; Visit Provider Physician Assistant Medical
DX: M25.511 Pain in right shoulder (principal); M47.817 Spondylosis without myelopathy or radiculopathy, lumbosacral region; G89.4 Chronic pain syndrome; D69.6 Thrombocytopenia, unspecified

== ENCOUNTER → 2025-06-26 14:45 | Outpatient (BNV) | payer MEDICARE, SELFPAY | PROVIDERS: PCP Internal Medicine; Visit Provider Radiology Diagnostic Radiology | DX: M25.511 Pain in right shoulder (principal) | CPT/HCPCS: 73030 ==

== ENCOUNTER 2025-07-27 08:18 | Outpatient (AMB) | payer MEDICARE, SELFPAY ==
--- NOTE | 2025-07-27 08:30 | A.OFFPC_ITS ---
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 Accompanied by: Self / Same As Patient Allergies No Known Allergies Allergy (Verified 07/27/25 09:27) Medication List - Last Reconciled 07/27/25 by Varinder Jaime MD albuterol sulfate 90 mcg/actuation 2 puffs inhalation Q4H PRN baclofen 10 mg PO QID diclofenac sodium 1% (Voltaren Arthritis Pain) 4 grams topical QID ibuprofen 800 mg PO TID naloxone 4 mg/actuation (Narcan) 1 spray intranasal Q2M oxycodone 5 mg PO TID PRN 30 days Tobacco use date assessed: 07/27/25 Dental Screening Dental Screen Date: 07/27/25 Did you have a dental visit in the last 12 months?: No Did you have a dental problem in the last 6 months where you did not have access to dental care?: No HPI Med Check HPI Details 65-year-old male presents to the office for a follow-up visit. Patient takes opiates for chronic back pain. He has been reduced to oxycodone 5 mg twice daily. Patient reports he is not able to function at this dosage. Continues to have back spasms and is taking baclofen up to 4 times a day. In addition he takes countless pills of Motrin. Continues to have right shoulder pain. An x-ray of the shoulder done in the last office visit was consistent with DJD. Patient has a obtained no relief with Voltaren gel. [facility] Medical History Low platelet count Right shoulder pain Chronic pain syndrome History of degenerative disc disease High cholesterol Family History Father Cirrhosis of liver Alcohol abuse Mother Dementia Social History Housing: House Alcohol intake: current Alcohol intake frequency: does not drink Patient Tobacco Use Status: Former Tobacco user service: Yes Current occupational status: disabled Cognitive needs: Yes (cane occasionally) Hearing needs: No Vision needs: Yes (rx glasses) Questionnaire PHQ-9 Over the last 2 weeks, how often have you been bothered by any of the following problems? 1. Little interest or pleasure in doing things: not at all 2. Feeling down, depressed, or hopeless: not at all 3. Trouble falling or staying asleep, or sleeping too much: not at all 4. Feeling tired or having little energy: not at all 5. Poor appetite or overeating: not at all 6. Feeling bad about yourself - or that you are a failure or have let yourself or your family down: not at all 7. Trouble concentrating on things, such as reading the newspaper or watching television: not at all 8. Moving or speaking so slowly that other people could have noticed. Or the opposite - being so fidgety or restless that you have been moving around a lot more than usual: not at all 9. Thoughts that you would be better off or of hurting yourself in some way: not at all Total score: 0 Depression Screening Interpretation: Negative Depression Screening Done: Yes 85001 - PHQ-9 Billing: Yes Source: Developed by Drs. Luis Ramos, Melani Goodrich, Garth Subramanian and colleagues, with an educational luis daniel from [employer]. Thrive Questionnaire Date Thrive assessed: 07/27/25 I am a: Patient What is your living situation today?: I have a steady place to live Within the past 12 months, did the food you bought not last and you didn't have the money to get more?: Never true Within the past 12 months, did you worry whether your food would run out before you got money to buy more?: Never true Do you have trouble paying for medicines?: No Do you have trouble getting transportation to medical appointments?: No Do you have trouble paying your heating and electricity bill?: No Do you have trouble taking care of your child, family member or friend?: No Do you have trouble with day-to-day activities such as bathing, preparing meals, shopping, managing finances, etc.?: No Are you currently unemployed and looking for a job?: No Are you interested in more education?: No Please select the resources that you would like help with: None THRIVE Score: 0 AUDIT C Alcohol Use Questionnaire (AUDIT-C) 1. How often do you have a drink containing alcohol?: Never 3. How often do you have six or more drinks on one occasion?: Never Total Score: 0 Score Reviewed/Action Taken: No DRE-7 AMB Questionnaire DRE-7 Date DRE - 7 assessed: 07/27/25 Feeling nervous, anxious, or on edge: 0 = Not at all Not being able to stop or control worryin = Not at all Worrying too much about different things: 0 = Not at all Trouble relaxin = Not at all Being so restless that it is hard to sit still: 0 = Not at all Becoming easily annoyed or irritable: 0 = Not at all Feeling afraid as if something awful might happen: 0 = Not at all Total DRE-7 score (0-4 normal; 5-9 mild; 10-14 moderate; 15-21 severe): 0 Source: Developed by Drs. Luis Ramos, Melani Goodrich, Garth Subramanian and colleagues, with an educational luis daniel from [employer]. DRE-7 Assessment Billing DRE-7 Assessment Tool: DRE-7 Assessment 21016 Physical exam (Primary Care) Vital Signs: Last Vital Signs Temp 97.2 F 07/27/25 08:31 Pulse 77 07/27/25 08:31 Pulse Ox 92 07/27/25 08:31 Oxygen Delivery Method Room Air 07/27/25 08:31 BMI result Body Mass Index 30.0 Tobacco/Smoking Status: Tobacco use Status Tobacco use date assessed 07/27/25 07/27/25 08:36 Patient Tobacco Use Status Former Tobacco user 07/27/25 08:36 PHQ-9: PHQ-9 Score PHQ-9: Total score 0 07/27/25 08:36 Depression Screening Interpretation: Negative Thrive Assessment: Date of Thrive Assessment Date Thrive assessed 07/27/25 07/27/25 08:36 Const General: cooperative and healthy appearing Nutritional Appearance: well nourished Orientation/consciousness: patient oriented x3 Limitations: no limitations HENMT Head: Yes normal to inspection Eyes General: appearance normal, both eyes and all related structures Neck Neck: Yes normal visual inspection Chest Chest palpation & inspection: normal palpation of entire chest wall Resp Effort & Inspection: normal respiratory effort Neuro General: patient oriented x3 Extrem Other: Right shoulder: Pain on abduction of the arm. Able to forward flex the arm. Unable to do all range of motion. Coding Level of Care Code Est Pt Level 4 (56354) Complex EM visit Add On G2211 Diagnoses Right shoulder pain M25.511 Chronic pain syndrome G89.4 Additional Codes DRE-7 Assessment Billing - DRE-7 Assessment Tool: DRE-7 Assessment 17602 ([id number]) PHQ-9 - 90070 - PHQ-9 Billing: Yes ([id number]) Assessment & Plan Assessment & Plan (1) Right shoulder pain: Code(s): M25.511 - Pain in right shoulder Category: Medical Plan: Since there is no relief in pain symptoms, ortho referral has been scheduled. (2) Chronic pain syndrome: Code(s): G89.4 - Chronic pain syndrome Category: Medical Plan: Oxycodone has been increased to 5 mg t.i.d.. Recent MRI, pain management follow-up reviewed. Baclofen dosage has been reduced to 10 mg 4 times a day. Orders: Referrals Orthopedics Referral M25.511 - Pain in right shoulder Neuro Spine Referral M47.816 - Spondylosis without myelopathy or radiculopathy, lumbar region Cologuard Test Z12.11 - Encounter for screening for malignant neoplasm of colon Medications: Changed From oxycodone Maybe partially filled upon patient request 5 mg PO BID PRN 60 tabs 0RF pain 30 days To oxycodone Maybe partially filled upon patient request 5 mg PO TID PRN 90 tabs 0RF pain 30 days Refilled ibuprofen 800 mg PO TID 90 tabs 3RF
[2025-07-27 08:31] VITALS: PULSE 77; TEMP 36.2; O2SAT 92
== END 2025-07-27 09:34 | disposition home or self-care (01) ==
LOC: HO.HMCSH 08:18
PROVIDERS: PCP Internal Medicine; Visit Provider Internal Medicine
DX: M25.511 Pain in right shoulder (principal); G89.4 Chronic pain syndrome

== ENCOUNTER → 2025-07-27 08:18 | Outpatient (BNVA) | payer MEDICARE, SELFPAY | PROVIDERS: PCP Internal Medicine; Visit Provider Internal Medicine | DX: G89.4 Chronic pain syndrome (principal); M25.511 Pain in right shoulder; M47.816 Spondylosis without myelopathy or radiculopathy, lumbar region; Z79.891 Long term (current) use of opiate analgesic | CPT/HCPCS: 96127; 99212 ==

== ENCOUNTER 2025-08-31 08:11 | Outpatient (AMB) | payer MEDICARE, SELFPAY ==
--- NOTE | 2025-08-31 08:23 | MHC.PC.OV ---
Vital Signs 08/31/25 08:33 Height 5 ft 11 in Weight 227 lb BMI 31.7 BP 93/55 L Blood Pressure Location Lt brachial Pulse 87 Pulse Source Pulse Oximeter Temp 97.9 F Pulse Oximetry (%) 95 Intake Visit Reasons: 1 Month follow up Intake Note: No issues except waiting for his orthopedics appointment. Allergies No Known Allergies Allergy (Verified 08/31/25 08:26) Tobacco use date assessed: 07/27/25 Dental Screening Dental Screen Date: 08/31/25 Did you have a dental visit in the last 12 months?: Yes Did you have a dental problem in the last 6 months where you did not have access to dental care?: Yes Was dental information given to patient?: Patient has dentist HPI HPI Comments History of Present Illness Details History of Present Illness - The patient is a 65 year old individual presenting for follow-up on right shoulder pain and referrals. - The patient reports significant difficulty with the right shoulder, with pain that sometimes radiates to the elbow. - The patient has been referred to orthopedics and has an appointment scheduled for September 15. - A referral was also made to [facility]; they contacted the patient, but the patient was unable to answer and subsequent attempts to call back were unsuccessful. - The patient has seen pain management, but reports no follow-up appointment was made and does not recall discussing a stimulator. - For pain, the patient takes oxycodone two to three times daily as needed. - The patient confirmed having naloxone at home. - In terms of health maintenance, the patient completed a Cologuard test on August 10, which was negative. - The patient declined the flu shot. Social History - Substance use: The patient is prescribed oxycodone for pain management and has naloxone at home. Results - Cologuard: Negative (08/10). [facility] Medical History Low platelet count Right shoulder pain Chronic pain syndrome History of degenerative disc disease High cholesterol Family History Father Cirrhosis of liver Alcohol abuse Mother Dementia Social History Housing: House Alcohol intake: current Alcohol intake frequency: does not drink Patient Tobacco Use Status: Former Tobacco user service: Yes Current occupational status: disabled Cognitive needs: Yes (cane occasionally) Hearing needs: No Vision needs: Yes (rx glasses) Questionnaire PHQ-9 Over the last 2 weeks, how often have you been bothered by any of the following problems? 1. Little interest or pleasure in doing things: not at all 2. Feeling down, depressed, or hopeless: not at all 3. Trouble falling or staying asleep, or sleeping too much: not at all 4. Feeling tired or having little energy: not at all 5. Poor appetite or overeating: not at all 6. Feeling bad about yourself - or that you are a failure or have let yourself or your family down: not at all 7. Trouble concentrating on things, such as reading the newspaper or watching television: not at all 8. Moving or speaking so slowly that other people could have noticed. Or the opposite - being so fidgety or restless that you have been moving around a lot more than usual: not at all 9. Thoughts that you would be better off or of hurting yourself in some way: not at all Total score: 0 Depression Screening Interpretation: Negative Depression Screening Done: Yes 34021 - PHQ-9 Billing: Yes Source: Developed by Drs. Luis Ramos, Melani Goodrich, Garth Subramanian and colleagues, with an educational luis daniel from [employer]. Thrive Questionnaire Date Thrive assessed: 07/27/25 I am a: Patient What is your living situation today?: I have a steady place to live Within the past 12 months, did the food you bought not last and you didn't have the money to get more?: Never true Within the past 12 months, did you worry whether your food would run out before you got money to buy more?: Never true Do you have trouble paying for medicines?: No Do you have trouble getting transportation to medical appointments?: No Do you have trouble paying your heating and electricity bill?: No Do you have trouble taking care of your child, family member or friend?: No Do you have trouble with day-to-day activities such as bathing, preparing meals, shopping, managing finances, etc.?: No Are you currently unemployed and looking for a job?: No Are you interested in more education?: No Please select the resources that you would like help with: None THRIVE Score: 0 AUDIT C Alcohol Use Questionnaire (AUDIT-C) 1. How often do you have a drink containing alcohol?: Never 3. How often do you have six or more drinks on one occasion?: Never Total Score: 0 Score Reviewed/Action Taken: No DRE-7 AMB Questionnaire DRE-7 Date DRE - 7 assessed: 07/27/25 Feeling nervous, anxious, or on edge: 0 = Not at all Not being able to stop or control worryin = Not at all Worrying too much about different things: 0 = Not at all Trouble relaxin = Not at all Being so restless that it is hard to sit still: 0 = Not at all Becoming easily annoyed or irritable: 0 = Not at all Feeling afraid as if something awful might happen: 0 = Not at all Total DRE-7 score (0-4 normal; 5-9 mild; 10-14 moderate; 15-21 severe): 0 Source: Developed by Drs. Luis Ramos, Melani Goodrich, Garth Subramanian and colleagues, with an educational luis daniel from [employer]. DRE-7 Assessment Billing DRE-7 Assessment Tool: DRE-7 Assessment 19060 Review of Systems Narrative Review of Systems - Musculoskeletal: Reports significant pain in the right shoulder, which sometimes radiates down to the elbow. - All other systems reviewed and are negative. Physical exam (Primary Care) Vital Signs: Last Vital Signs Temp 97.9 F 08/31/25 08:33 Pulse 87 08/31/25 08:33 BP 93/55 L 08/31/25 08:33 Pulse Ox 95 08/31/25 08:33 BMI result Body Mass Index 31.7 Tobacco/Smoking Status: Tobacco use Status Tobacco use date assessed 07/27/25 08/31/25 08:24 Patient Tobacco Use Status Former Tobacco user 08/31/25 08:24 PHQ-9: PHQ-9 Score PHQ-9: Total score 0 08/31/25 08:45 Depression Screening Interpretation: Negative Thrive Assessment: Date of Thrive Assessment Date Thrive assessed 07/27/25 08/31/25 08:24 Narrative Physical Exam General: Appearance normal, both eyes and all related structures Nutritional Appearance: Well nourished Orientation/consciousness: Patient oriented x3 Limitations: Right shoulder pain, sometimes radiating to the elbow Head: Normal to inspection Neck: Normal visual inspection Chest: Normal palpation of entire chest wall Respiratory: Normal respiratory effort Neurology: Patient oriented x3 Office Procedures Flu Questionnaire Does the patient have a severe egg allergy?: No Does the patient have severe life threatening allergies?: No Does the patient have a fever or illness today?: No Has the patient ever had Guillain-[place] Syndrome?: No Has the patient ever had any past reaction to a flu shot?: No Immunizations Fluarix [id number] (PF) 45 mcg (15 mcg x 3)/0.5 mL IM syringe Performing Provider: Varinder Jaime MD [place] [facility] Documented (not given) by: Liberty Page on 08/31/25 08:31 Dose Route Admin Location Dispensed Lot Number Expiration Date [facility] Offset Proof [employer] 0.5 mL IM mL VIS Given Date VIS Provided VIS Publication Date 08/31/25 Single Vaccine 24 Eligibility Eligibility Date Funding Source Coding Level of Care Code Complex visit Add On G2211 Diagnoses Lumbar radiculopathy M54.16 Additional Codes DRE-7 Assessment Billing - DRE-7 Assessment Tool: DRE-7 Assessment 22909 ([id number]) PHQ-9 - 90613 - PHQ-9 Billing: Yes ([id number]) Assessment & Plan Assessment & Plan (1) Lumbar radiculopathy: Code(s): M54.16 - Radiculopathy, lumbar region Category: Medical Plan Plan - Right shoulder pain: The patient will proceed with the orthopedics appointment on September 15. - Spine/back pain: The patient is advised to follow up with the [facility] referral to schedule an appointment. - Chronic pain management: A message will be sent to the pain management clinic to clarify follow-up and discuss their plan for a repeat lumbar MRI and potential therapeutic injections. - Medications: Continue oxycodone 2-3 times per day as needed for pain. - Health maintenance: The patient has a negative Cologuard. - Follow-up: The patient will return to the clinic in 3 months. Discussion Notes I discussed the importance of attending upcoming specialist appointments with orthopedics and [facility]. I reviewed the pain management note, which mentioned a repeat lumbar MRI and injections, and I will send a message to their office to clarify the plan as the patient has no follow-up scheduled. We confirmed the recent Cologuard test was negative. We agreed to continue the current oxycodone regimen, taken as needed two to three times daily, and confirmed that the patient has naloxone at home. A follow-up visit is scheduled in three months. Patient Instructions - Go to your orthopedics appointment on September 15 at [facility] for your shoulder. - Please ensure you make and attend your appointments with specialists, including [facility]. - Continue taking oxycodone as prescribed, 2-3 times a day if you need it for pain. - Make sure you have Narcan (naloxone) available at home. - Come back for a follow-up visit in three months. Orders: Orders Influenza [id number] Immunization Today Z23 - Encounter for immunization Medications: New Fluarix [id number] (PF) (flu vac ts 2024-(6mos up)-PF) 0.5 mL IM ONCE 0.5 mL 0RF NS Z23 - Encounter for immunization
[2025-08-31 08:33] VITALS: BP 93/55; PULSE 87; TEMP 36.6; O2SAT 95; BMI 31.7
== END 2025-08-31 08:50 | disposition home or self-care (01) ==
LOC: HO.HMCSH 08:11
PROVIDERS: PCP Internal Medicine; Visit Provider Internal Medicine
DX: M54.16 Radiculopathy, lumbar region (principal); Z23 Encounter for immunization

== ENCOUNTER → 2025-08-31 08:11 | Outpatient (BNVA) | payer MEDICARE, SELFPAY | PROVIDERS: PCP Internal Medicine; Visit Provider Internal Medicine | DX: M25.511 Pain in right shoulder (principal); M54.16 Radiculopathy, lumbar region; Z13.31 Encounter for screening for depression | CPT/HCPCS: 90471; 96127; 99212 ==

== ENCOUNTER 2025-09-15 09:24 | Outpatient (AMB) | payer MEDICARE, SELFPAY ==
--- NOTE | 2025-09-15 09:29 | A.OFFVIS_ITS ---
Intake Visit Reasons: Newprob-Pain in right shoulder Intake Note: Guille is a 65 year old right hand dominant male who presents today for a evaluation of his right shoulder pain. Patient states that his pain has been going on for a couple months. He reports that his pain is on the lateral aspect of the shoulder. Patient's pain is worse when he is doing over head reaching and lifting. Allergies No Known Allergies Allergy (Verified 09/15/25 09:32) HPI Comments Details: The patient is a 65 year old male presenting with right shoulder pain. He reports the pain began a couple of months ago and is located in his dominant right shoulder. He had a previous X-ray and was told he has arthritis. A trial of Voltaren was not effective and may have exacerbated his symptoms. The patient states that some mornings he is unable to move his arm without using his other hand to assist it. He takes Oxycodone and 800 mg ibuprofen for back pain, which also helps with his shoulder pain. [facility] Medical History Low platelet count Right shoulder pain Chronic pain syndrome History of degenerative disc disease High cholesterol Family History Father Cirrhosis of liver Alcohol abuse Mother Dementia Social History Housing: House Alcohol intake: current Alcohol intake frequency: does not drink Patient Tobacco Use Status: Former Tobacco user service: Yes Current occupational status: disabled Cognitive needs: Yes (cane occasionally) Hearing needs: No Vision needs: Yes (rx glasses) Review of Systems Narrative Review of Systems - Musculoskeletal: Reports right shoulder pain that started a couple of months ago. - He sometimes experiences severe stiffness in the morning, requiring him to physically move the arm with his other hand. - Reports back pain managed with Oxycodone and ibuprofen. Const All systems reviewed & are unremarkable except as noted in HPI and below Physical Exam Exam Exam: Procedure - Procedure: Cortisone injection to the right shoulder. - Consent: The patient was offered the injection and agreed to proceed. Physical Exam - Musculoskeletal: On examination of the right shoulder, the patient demonstrates limited active elevation. - There is good passive external rotation. - Pain is elicited with cross-body adduction. - Strength testing reveals weakness and pain with resisted internal rotation (thumb down), indicative of rotator cuff impingement. Const General: cooperative, healthy appearing and no acute distress Resp Effort & Inspection: normal respiratory effort and able to speak in complete sentences Extrem Other: Right shoulder 90 degrees forward flexion abduction. External rotation to neutral. Able to reach back pocket. Pain with cross-body reach. 3/5 strength with empty can. Negative drop arm. NVI. Psych Appearance: grossly normal Mental Status: mental status grossly normal Attitude: cooperative Assessment & Plan Assessment & Plan (1) Painful arc syndrome of right shoulder: Code(s): M75.101 - Unspecified rotator cuff tear or rupture of right shoulder, not specified as traumatic Category: Medical Plan I recommended a cortisone injection to help reduce pain and inflammation. The patient was offered a cortisone injection in right shoulder. The patient was explained the risks, benefits, and alternatives to receiving this injection. After receiving consent for the injection, the patient had the procedure done while in the office today. The patient tolerated the procedure well with no complications. The risks, benefits, and alternatives to a corticosteroid injection were discussed with the patient, including the potential benefits of decreased inflammation and pain, improved function, and diagnostic value. Risks were reviewed, including post-injection flare, skin or fat atrophy, transient facial flushing, temporary elevation in blood glucose, bruising, and rare but serious complications such as infection, tendon weakening or rupture, and cartilage damage with repeated injections. Procedure-related discomfort and possible vasovagal symptoms were also explained. Alternatives were reviewed, including NSAIDs, physical therapy, activity modification, bracing, ice/heat, weight management, hyaluronic acid injections when appropriate, PRP or other orthobiologics, oral steroids, surgery depending on pathology, and observation. The patient verbalized understanding and elected to proceed. After receiving consent for the injection, the patient had the procedure done while in the office today. The patient tolerated the procedure well with no complications. The patient understood and consented to the procedure. We also discussed that if the injection fails to provide relief, the next steps would be to order physical therapy in preparation to obtain an MRI for the possibility of surgical planning. Follow-up will be PRN, or sooner if needed Coding Level of Care Code Complex visit Add On G2211 Diagnoses Painful arc syndrome of right shoulder M75.101
== END 2025-09-15 10:00 | disposition home or self-care (01) ==
LOC: HO.HOS 09:25
PROVIDERS: PCP Internal Medicine; Visit Provider Physician Assistant
DX: M75.101 Unspecified rotator cuff tear or rupture of right shoulder, not specified as traumatic (principal)
CPT/HCPCS: 20610; 99214

== ENCOUNTER → 2025-09-15 09:24 | Outpatient (BNVA) | payer MEDICARE, SELFPAY | PROVIDERS: PCP Internal Medicine; Visit Provider Physician Assistant | DX: M75.101 Unspecified rotator cuff tear or rupture of right shoulder, not specified as traumatic (principal) | CPT/HCPCS: 20610; 99212; J0665; J1100; J2003 ==

== ENCOUNTER 2025-10-05 08:12 | Outpatient (AMB) | payer MEDICARE, SELFPAY ==
--- NOTE | 2025-10-05 08:43 | MHC.PC.OV ---
Vital Signs 10/05/25 08:51 Height 5 ft 11 in Weight 234 lb 0.2 oz BMI 32.6 BP 112/75 Blood Pressure Location Lt brachial Pulse 73 Pulse Source Pulse Oximeter Temp 97.4 F Pulse Oximetry (%) 94 Intake Visit Reasons: 1 Month follow up Allergies No Known Allergies Allergy (Verified 10/05/25 09:09) Medication List - Last Reconciled 10/05/25 by Varinder Jaime MD albuterol sulfate 90 mcg/actuation 2 puffs inhalation Q4H PRN baclofen 10 mg PO QID diclofenac sodium 1% (Voltaren Arthritis Pain) 4 grams topical QID ibuprofen 800 mg PO TID naloxone 4 mg/actuation (Narcan) 1 spray intranasal Q2M oxycodone 5 mg PO TID PRN 30 days Tobacco use date assessed: 07/27/25 Dental Screening Dental Screen Date: 08/31/25 HPI HPI Comments History of Present Illness Details History of Present Illness - The patient is a 65 year old male presenting for chronic pain management and medication refills. - The patient reports receiving a cortisone injection for right shoulder pain, but states the pain is not improving despite exercising it. - He plans to make a follow-up appointment with his management development specialist. - Regarding his chronic lower back pain, he notes his condition is stable and he has had no more spasms. - His current medication regimen includes oxycodone three times a day, baclofen four times a day, and ibuprofen as needed. - He confirms he has naloxone spray at home. - The patient has a pain management appointment scheduled for October 09, which was rescheduled after he declined a specific provider and a subsequent appointment was canceled by the clinic. - A [facility] also [facility], but the patient reports he was never contacted. - For health maintenance, the patient recently completed a Cologuard test which was negative. - His blood work from June was normal. - He declines the flu shot. Social History Results - Tests: Cologuard test was negative. - Labs: Blood work completed in June was fine. [facility] Medical History Low platelet count Right shoulder pain Chronic pain syndrome History of degenerative disc disease High cholesterol Family History Father Cirrhosis of liver Alcohol abuse Mother Dementia Social History Housing: House Alcohol intake: current Alcohol intake frequency: does not drink Patient Tobacco Use Status: Former Tobacco user service: Yes Current occupational status: disabled Cognitive needs: Yes (cane occasionally) Hearing needs: No Vision needs: Yes (rx glasses) Questionnaire PHQ-9 Over the last 2 weeks, how often have you been bothered by any of the following problems? 1. Little interest or pleasure in doing things: not at all 2. Feeling down, depressed, or hopeless: not at all 3. Trouble falling or staying asleep, or sleeping too much: not at all 4. Feeling tired or having little energy: not at all 5. Poor appetite or overeating: not at all 6. Feeling bad about yourself - or that you are a failure or have let yourself or your family down: not at all 7. Trouble concentrating on things, such as reading the newspaper or watching television: not at all 8. Moving or speaking so slowly that other people could have noticed. Or the opposite - being so fidgety or restless that you have been moving around a lot more than usual: not at all 9. Thoughts that you would be better off or of hurting yourself in some way: not at all Total score: 0 Depression Screening Interpretation: Negative Depression Screening Done: Yes 84210 - PHQ-9 Billing: Yes Source: Developed by Drs. Luis Ramos, Melani Goodrich, Garth Subramanian and colleagues, with an educational luis daniel from [employer]. Thrive Questionnaire Date Thrive assessed: 07/27/25 I am a: Patient What is your living situation today?: I have a steady place to live Within the past 12 months, did the food you bought not last and you didn't have the money to get more?: Never true Within the past 12 months, did you worry whether your food would run out before you got money to buy more?: Never true Do you have trouble paying for medicines?: No Do you have trouble getting transportation to medical appointments?: No Do you have trouble paying your heating and electricity bill?: No Do you have trouble taking care of your child, family member or friend?: No Do you have trouble with day-to-day activities such as bathing, preparing meals, shopping, managing finances, etc.?: No Are you currently unemployed and looking for a job?: No Are you interested in more education?: No Please select the resources that you would like help with: None THRIVE Score: 0 AUDIT C Alcohol Use Questionnaire (AUDIT-C) 1. How often do you have a drink containing alcohol?: Never 3. How often do you have six or more drinks on one occasion?: Never Total Score: 0 Score Reviewed/Action Taken: No DRE-7 AMB Questionnaire DRE-7 Date DRE - 7 assessed: 07/27/25 Feeling nervous, anxious, or on edge: 0 = Not at all Not being able to stop or control worryin = Not at all Worrying too much about different things: 0 = Not at all Trouble relaxin = Not at all Being so restless that it is hard to sit still: 0 = Not at all Becoming easily annoyed or irritable: 0 = Not at all Feeling afraid as if something awful might happen: 0 = Not at all Total DRE-7 score (0-4 normal; 5-9 mild; 10-14 moderate; 15-21 severe): 0 Source: Developed by Drs. Luis Ramos, Melani Goodrich, Garth Subramanian and colleagues, with an educational luis daniel from [employer]. DRE-7 Assessment Billing DRE-7 Assessment Tool: DRE-7 Assessment 52240 Review of Systems Narrative Review of Systems - Musculoskeletal: Reports persistent right shoulder pain despite a recent cortisone injection. - Reports chronic lower back pain is stable. - Denies back spasms. - Ophthalmologic: Reports vision is good. - General: Denies pain on palpation of an unspecified area. Physical exam (Primary Care) Vital Signs: Last Vital Signs Temp 97.4 F 10/05/25 08:51 Pulse 73 10/05/25 08:51 BP 112/75 10/05/25 08:51 Pulse Ox 94 10/05/25 08:51 BMI result Body Mass Index 32.6 Tobacco/Smoking Status: Tobacco use Status Tobacco use date assessed 07/27/25 10/05/25 08:44 Patient Tobacco Use Status Former Tobacco user 10/05/25 08:44 PHQ-9: PHQ-9 Score PHQ-9: Total score 0 10/05/25 08:44 Depression Screening Interpretation: Negative Thrive Assessment: Date of Thrive Assessment Date Thrive assessed 07/27/25 10/05/25 08:44 Narrative Physical Exam General: Cooperative and healthy appearing Nutritional Appearance: Well nourished Orientation/consciousness: Patient oriented x3 Limitations: No limitations Head: Normal to inspection General: Appearance normal, both eyes and all related structures Neck: Normal visual inspection Chest: Normal palpation of entire chest wall Respiratory: Normal respiratory effort Neurology: Patient oriented x3 Office Procedures Flu Questionnaire Does the patient have a severe egg allergy?: No Does the patient have severe life threatening allergies?: No Does the patient have a fever or illness today?: No Has the patient ever had Guillain-Tuthill Syndrome?: No Has the patient ever had any past reaction to a flu shot?: No Immunizations Fluarix [id number] (PF) 45 mcg (15 mcg x 3)/0.5 mL IM syringe Performing Provider: Varinder Jaime MD [facility]forming [facility]: [facility] Documented (not given) by: Liberty Alcocer on 10/05/25 08:50 Reason Not Given: Patient Refused Coding Level of Care Code Est Pt Level 4 (27833) Add On Problem Visit Only Diagnoses Low platelet count D69.6 Painful arc syndrome of right shoulder M75.101 Chronic pain syndrome G89.4 Additional Codes DRE-7 Assessment Billing - DRE-7 Assessment Tool: DRE-7 Assessment 57196 ([id number]) PHQ-9 - 19527 - PHQ-9 Billing: Yes ([id number]) Assessment & Plan Assessment & Plan (1) Low platelet count: Code(s): D69.6 - Thrombocytopenia, unspecified Category: Medical Plan: Condition has resolved (2) Painful arc syndrome of right shoulder: Code(s): M75.101 - Unspecified rotator cuff tear or rupture of right shoulder, not specified as traumatic Category: Medical Plan: Will continue to see the ortho MD (3) Chronic pain syndrome: Code(s): G89.4 - Chronic pain syndrome Category: Medical Plan Plan - For right shoulder pain, the patient will schedule a follow-up appointment with his management development specialist. - For chronic pain management, the dose of oxycodone 5 mg will be reduced from 90 pills per month (TID) to 70 pills per month, aiming for BID dosing with extra pills for breakthrough pain. - A refill for ibuprofen will be provided. - Patient will continue baclofen as prescribed and has a sufficient supply. - The patient will proceed with his scheduled pain management consultation on October 09 to discuss further treatment options. - The clinic will investigate the status of the neurospine referral, as the patient has not yet been contacted. - Oxycodone will be refilled monthly, and the patient is advised to call one week prior to running out, without the need for a monthly in-person visit for refills. - The patient will follow up in the office in six months. Discussion Notes I discussed the management of the patient's chronic pain conditions. Regarding his right shoulder, we acknowledged the lack of improvement from the cortisone shot and agreed he would follow up with orthopedics. For his chronic lower back pain, I proposed a plan to taper his oxycodone use by reducing his monthly prescription from 90 to 70 pills, which he agreed to try. I confirmed he has naloxone at home. We will provide a refill for his as-needed ibuprofen. I confirmed his upcoming appointment with pain management and informed him that I will investigate why he has not heard back about his neurospine referral. I also explained that while his controlled substance prescription will be filled monthly, he will not need to come in for a visit each month for the refill unless dosage adjustments are needed. We reviewed his negative Cologuard result and planned for a follow-up office visit in six months. Patient Instructions - Please call to make a follow-up appointment with your orthopedic doctor for your right shoulder pain. - We are reducing your oxycodone prescription to 70 pills per month. - This should be enough for about two pills per day, with a few extra for days when your pain is worse. - We have sent a refill for your ibuprofen prescription to your pharmacy. - Continue taking your baclofen as prescribed. - Keep your scheduled appointment with the Pain Management clinic on October 09. - Our office will check on your referral to the neurospine specialist and get back to you. - For your oxycodone prescription refills, please call our office about one week before you run out of medicine. - You do not need to come into the office every month for this refill. - Please schedule a follow-up visit in our office in six months. Orders: Orders Influenza [id number] Immunization Today Z23 - Encounter for immunization
[2025-10-05 08:51] VITALS: BP 112/75; PULSE 73; TEMP 36.3; O2SAT 94; BMI 32.6
== END 2025-10-05 09:10 | disposition home or self-care (01) ==
LOC: HO.HMCSH 08:12
PROVIDERS: PCP Internal Medicine; Visit Provider Internal Medicine
DX: D69.6 Thrombocytopenia, unspecified (principal); M75.101 Unspecified rotator cuff tear or rupture of right shoulder, not specified as traumatic; G89.4 Chronic pain syndrome; Z23 Encounter for immunization

== ENCOUNTER → 2025-10-05 08:12 | Outpatient (BNVA) | payer MEDICARE, SELFPAY | PROVIDERS: PCP Internal Medicine; Visit Provider Internal Medicine | DX: G89.4 Chronic pain syndrome (principal); M75.101 Unspecified rotator cuff tear or rupture of right shoulder, not specified as traumatic; M54.50 Low back pain, unspecified; Z28.21 Immunization not carried out because of patient refusal; Z13.31 Encounter for screening for depression; Z13.39 Encounter for screening examination for other mental health and behavioral disorders; Z79.891 Long term (current) use of opiate analgesic | CPT/HCPCS: 90471; 96127; 99212 ==